=== PATIENT | male | born 1950 | race Caucasian/White ===

== ENCOUNTER 2017-07-25 09:25 | Observation (INO) | payer MEDICARE ==
[~2017-07-25] VITALS: Ht 185.4 cm; Wt 88.0 kg
[~2017-07-25 09:25] MED LIST: CLON0.12 PO; TRAZ50TA18 PO
[2017-07-25 10:24] LABS: BASOPHILS # (AUTO) 0.02 x10^3/uL (0-0.1); BASOPHILS % (AUTO) 0 % (0-1); EOSINOPHILS # (AUTO) 0.05 x10^3/uL (0-0.4); EOSINOPHILS % (AUTO) 1 % (1-7); LYMPHOCYTES # (AUTO) 0.91 x10^3/uL (1-3.4); LYMPHOCYTES % (AUTO) 12 % (22-44); MD NO; MEAN CORPUSCULAR HEMOGLOBIN 32.6 pg (27.5-34.5); MEAN CORPUSCULAR HGB CONC 34.3 g/dL (33.2-36.2); MEAN CORPUSCULAR VOLUME 95.1 fL (81-97); MEAN PLATELET VOLUME 7.3 fL (7.4-10.4); MONOCYTES # (AUTO) 0.68 x10^3/uL (0.2-0.8); MONOCYTES % (AUTO) 9 % (2-9); NEUTROPHILS # (AUTO) 6.01 x10^3/uL (1.8-6.8); NEUTROPHILS % (AUTO) 78 % (42-75); PLATELET COUNT 310 x10^3/uL (130-400); RED BLOOD COUNT 4.52 x10^6/uL (4.38-5.82); RED CELL DISTRIBUTION WIDTH 15.1 % (9.4-14.8)
[2017-07-25 10:35] LABS: ALANINE AMINOTRANSFERASE 42 U/L (12-78); ANION GAP 11 mmol/L (5-15); CHLORIDE 112 mmol/L (98-107); CREATININE 0.85 mg/dL (0.7-1.3); SALICYLATE LEVEL 2.9 mg/dL (2.8-20.0)
[2017-07-25 10:37] LABS: ALKALINE PHOSPHATASE 87 U/L (45-117); TOTAL PROTEIN 7.6 g/dL (6.4-8.2)
[2017-07-25 10:39] LABS: AMPHETAMINE SCREEN, URINE Negative (Negative); BARBITURATE SCREEN, URINE Negative (Negative); BENZODIAZEPINE SCREEN, URINE Negative (Negative); CANNABINOID SCREEN, URINE Negative (Negative); COCAINE SCREEN, URINE Negative (Negative); METHADONE SCREEN, URINE Negative (Negative); OPIATE SCREEN, URINE Negative (Negative)
[2017-07-25] MEDS ORDERED: ZIPRASIDONE 20 MG INJ IM ONE ×2 (10:56→11:00)
[2017-07-25 11:19] LABS: ACETAMINOPHEN > 2 mcg/mL (10-30)
[2017-07-25] MEDS ORDERED: ACETAMINOPHEN 325 MG TABLET PO PRN (14:00)
[2017-07-25] MEDS ORDERED: ONDANSETRON ODT 4 MG PO PRN (14:00)
[2017-07-25] MEDS ORDERED: LORazepam 1MG TABLET PO PRN (16:00)
[2017-07-25] MEDS ORDERED: HALOPERIDOL 5 MG/ML IM PRN (16:00)
[2017-07-25 16:04] VITALS: BP 150/89
[2017-07-25 20:04] VITALS: BP 136/88
== END 2017-07-25 20:49 ==
LOC: ED 12:25 → EDIP 12:26 → ED 13:20 → SUATTDRO 13:40 → 2N 15:55
PROVIDERS: ADMIT Internal Medicine; ATTEND Internal Medicine
DX: R45.851 Suicidal ideations (principal); F17.200 Nicotine dependence, unspecified, uncomplicated; F23 Brief psychotic disorder; F32.9 Major depressive disorder, single episode, unspecified; Z91.5 Personal history of self-harm; Z91.83 Wandering in diseases classified elsewhere
CPT/HCPCS: 36415; 80053; 80307; 80329; 85025; 93005; 96372; 99285; G0378; J3486; G0480